=== PATIENT | male | born 1965 | race Caucasian/White ===

== ENCOUNTER 2024-07-11 12:14 | Emergency (ER) | payer OTHER, SELFPAY ==
[2024-07-11] VITALS (22 sets, daily range): BP systolic 123–134; BP diastolic 71–92; PULSE 51–62; RESP 16–20; TEMP 36.4; O2SAT 97–99; BMI 31.6
--- NOTE | 2024-07-11 12:56 | CRLHL7_ITS ---
For Patients: As a result of the Century Cures Act, medical imaging exams and procedure reports are released immediately into your electronic medical record. You may view this report before your referring provider. If you have questions, please contact your health care provider. Indication: Chest pain Technique: AP view of the chest. Comparison: None. Findings: Low lung volumes. Postsurgical changes from median sternotomy. Mildly enlarged cardiomediastinal silhouette with postsurgical changes from coronary artery bypass grafting. Mild interstitial prominence. No focal consolidation, pleural effusions, or visualized pneumothorax. Impression: Mildly enlarged cardiomediastinal silhouette and mild interstitial prominence may relate to low lung volumes or represent mild pulmonary edema. Dictated by Christian Campbell MD @ 07/11/2024 1:31:59 PM (Electronically Signed)
[2024-07-11] MEDS: ASPIRIN 81 MG TAB.CHEW 324 MG PO (13:12)
[2024-07-11 13:37] LABS: Basophils Absolute Auto 0.03 K/uL (0.00-0.30); Basophils Percent Auto 0.6 % (0.0-3.0); Eosinophils Absolute Auto 0.11 K/uL (0.00-0.50); Eosinophils Percent Auto 2.3 % (0.0-7.0); Hematocrit 45.1 % (37.0-53.0); Hemoglobin* 14.9 gm/dL (13.5-17.5); Immature Granulocytes Abs Auto 0.01 K/uL (0.00-0.30); Immature Granulocytes Pct Auto 0.2 %; Lymphocytes Absolute Auto 1.45 K/uL (0.90-2.90); Lymphocytes Percent Auto 30.5 % (20-44); Mean Corpuscular HGB Conc 33 gm/dL (32-36); Mean Corpuscular Hemoglobin 30 pg (26-34); Mean Corpuscular Volume 91 fL (80-100); Neutrophils Absolute Auto 2.77 K/uL (1.7-7.0); Neutrophils Percent Auto 58.4 % (42.0-72.0); Platelet Count* 175 K/uL (140-440); RDW Coefficient of Variation % 12.9 % (11.5-15.5); Red Blood Count 4.97 m/uL (4.30-5.90); White Blood Count* 4.75 K/uL (4.50-11.00)
[2024-07-11 13:59] LABS: Albumin* 4.6 g/dL (3.3-5.0); Chloride* 103 mmol/L (96-114)
[2024-07-11 14:00] LABS: Sodium* 139 mmol/L (135-149)
[2024-07-11 14:02] LABS: Alkaline Phosphatase* 73 U/L (40-150); Anion Gap 8 mEq/L (7-15); Aspartate Amino Transferase* 28 U/L (12-35); Bilirubin Direct* 0.2 mg/dL (0.0-0.5); Bilirubin Total* 0.8 mg/dL (0.1-1.5); Blood Urea Nitrogen* 14 mg/dL (7-30); Carbon Dioxide* 28 mmol/L (20-32); Creatinine* 0.8 mg/dL (0.5-1.5); Est. Creatinine Clearance* 103.92; Estimated Glomerular Filt Rate 103 ml/min; Lipase* 118 U/L (23-300); Total Protein* 7.5 g/dL (6.0-8.3)
[2024-07-11 14:03] LABS: Alanine Aminotransferase* 31 U/L (4-50); Calcium* 9.3 mg/dL (8.4-10.6); Glucose* 91 mg/dL (60-115)
[2024-07-11 14:06] LABS: C Reactive Protein* < 0.5 mg/dL (0.5-1.0); D Dimer Quantitative* 0.74 ug/ml (0.00-0.50)
[2024-07-11 14:07] LABS: Slide Review Reflex No
--- NOTE | 2024-07-11 14:17 | CRLHL7_ITS ---
For Patients: As a result of the Century Cures Act, medical imaging exams and procedure reports are released immediately into your electronic medical record. You may view this report before your referring provider. If you have questions, please contact your health care provider. INDICATION: Chest pain, elevated D-dimer. TECHNIQUE: CT chest PE was acquired with 95 cc Isovue 370 IV contrast. COMPARISON: None. FINDINGS: Heart and vasculature: Contrast opacification of the pulmonary arterial tree is adequate. No sign of pulmonary embolism. Heart size is normal. Coronary artery calcifications. Thoracic aorta and pulmonary artery are normal in caliber. Lungs and pleura: No suspicious nodules or infiltrates. Scattered atelectasis. No pleural effusions, pleural thickening, or pneumothorax. Lymph nodes/mediastinum: No mediastinal, hilar, or axillary adenopathy. Chest wall: No masses. Upper abdomen: No acute or significant findings. Bones: Unremarkable for age. IMPRESSION: No pulmonary embolism. No focal consolidations. Coronary artery calcifications. Please note that all CT scans at this facility use dose modulation, iterative reconstruction, and/or weight-based dosing when appropriate to reduce radiation dose to as low as reasonably achievable. Dictated by Jeremi Mederos MD @ 07/11/2024 3:01:11 PM (Electronically Signed)
--- NOTE | 2024-07-11 14:41 | ED_ITS ---
HPI - General Adult General Date Seen: 07/11/24 Chief complaint: Chest Pain Stated complaint: Chest pain Time Seen by Provider: 07/11/24 12:39 Source: patient Mode of arrival: ambulatory Limitations: no limitations History of Present Illness HPI narrative: Patient is a 59-year-old here for evaluation of chest pain which started a couple of hours prior to presentation. He was at work, not doing anything strenuous, developed sharp stabbing pain in the left side of his chest, kind of wraps around from his left back. Noted increased pain with a deep breath although he did not feel short of breath. Pain also worsens with movement. He has not had fever or cough, denies any lower extremity swelling or pain. Pain has continued since then although it is improved now compared to at its onset. He became concerned as he has a history of quintuple bypass about 6 years ago. He says he saw the industrial hygiene manager about a month ago, there have been no concerns about his cardiac health. He has not had exertional symptoms, has not had any stress testing that he is aware of. He is uncertain of his daily medications but is trying to get a list. He says his industrial hygiene manager recently tried to start him on a new blood pressure medicine that he did not tolerate it due to fatigue. He does not smoke or drink. Here with his . Related Data Home Medications ?Medication ?Instructions ?Recorded ?Confirmed aspirin 81 mg tablet,delayed 81 mg PO DAILY 07/11/24 07/11/24 release (Ecotrin Low Strength) atorvastatin 80 mg tablet 80 mg PO DAILY 07/11/24 07/11/24 ezetimibe 10 mg tablet 10 mg PO DAILY 07/11/24 07/11/24 fluticasone 100 mcg-salmeterol 50 1 ea inhalation BID 07/11/24 07/11/24 mcg/dose blistr powdr for inhalation losartan 25 mg tablet 25 mg PO DAILY 07/11/24 07/11/24 montelukast 10 mg tablet 10 mg PO DAILY 07/11/24 07/11/24 sildenafil 100 mg tablet 100 - 200 mg PO DAILY PRN 07/11/24 07/11/24 Allergies Allergy/AdvReac Type Severity Reaction Status Date / Time No Known Drug Allergies Allergy Verified 07/11/24 14:48 Review of Systems Status of ROS: Reports: 6 or more systems reviewed and unremarkable except as noted in History and below Exam Narrative: Exam Narrative: Vital signs reviewed In general, alert, nontoxic mid age male. Breathing easily. Head: Normocephalic, atraumatic. Eyes: Sclera clear. Pupils equal and reactive. ENT: Mucous membranes moist. Neck: Supple without adenopathy. Heart: Regular rate and rhythm without murmur. Lungs: Clear. No increased work of breathing, crackles or wheezes. Abdomen: Soft, nontender to palpation. Extremities: Well perfused, pulses intact. No significant edema. Neurologic: Alert, conversant. Speech fluent, face symmetric. Moves all extremities equally. Skin: Warm, dry well perfused. Affect: Normal. Const: Vital Signs, click to edit/add: Vital Signs - 24 hr 07/11/24 12:42 07/11/24 12:43 07/11/24 12:44 Temperature 97.6 F Pulse Rate 58 L 58 L Pulse Rate [Pulse Oximeter] 54 L Respiratory Rate 20 Blood Pressure 134/73 Blood Pressure [Le ft Upper Arm] 134/73 Pulse Oximetry 98 99 98 Oxygen Delivery Me thod Room Air 07/11/24 12:45 07/11/24 12:56 07/11/24 13:00 Temperature Pulse Rate 59 L 58 L Pulse Rate [Pulse Oximeter] Respiratory Rate Blood Pressure Blood Pressure [Le ft Upper Arm] Pulse Oximetry 99 97 99 Oxygen Delivery Me thod 07/11/24 13:01 07/11/24 13:01 07/11/24 13:01 Temperature Pulse Rate 57 L 57 L 57 L Pulse Rate [Pulse Oximeter] Respiratory Rate 16 Blood Pressure 130/92 H 130/92 H 130/92 H Blood Pressure [Le ft Upper Arm] Pulse Oximetry 97 97 97 Oxygen Delivery Me thod 07/11/24 13:01 07/11/24 13:15 07/11/24 13:30 Temperature Pulse Rate 57 L 62 53 L Pulse Rate [Pulse Oximeter] Respiratory Rate Blood Pressure 130/92 H Blood Pressure [Le ft Upper Arm] Pulse Oximetry 97 98 99 Oxygen Delivery Me thod 07/11/24 13:31 07/11/24 13:45 07/11/24 14:00 Temperature Pulse Rate 55 L 54 L 59 L Pulse Rate [Pulse Oximeter] Respiratory Rate Blood Pressure 133/84 Blood Pressure [Le ft Upper Arm] Pulse Oximetry 98 98 98 Oxygen Delivery Me thod 07/11/24 14:01 07/11/24 14:15 07/11/24 14:30 Temperature Pulse Rate 53 L 51 L 55 L Pulse Rate [Pulse Oximeter] Respiratory Rate Blood Pressure 127/73 Blood Pressure [Le ft Upper Arm] Pulse Oximetry 98 98 98 Oxygen Delivery Me thod 07/11/24 14:31 07/11/24 14:31 07/11/24 14:45 Temperature Pulse Rate 54 L 54 L 51 L Pulse Rate [Pulse Oximeter] Respiratory Rate Blood Pressure 130/71 130/71 Blood Pressure [Le ft Upper Arm] Pulse Oximetry 99 99 98 Oxygen Delivery Me thod 07/11/24 15:00 07/11/24 15:02 07/11/24 15:02 Temperature Pulse Rate 51 L 51 L 51 L Pulse Rate [Pulse Oximeter] Respiratory Rate Blood Pressure 125/72 125/72 Blood Pressure [Le ft Upper Arm] Pulse Oximetry 98 98 98 Oxygen Delivery Me thod 07/11/24 15:15 07/11/24 15:30 07/11/24 15:32 Temperature Pulse Rate 55 L 58 L 54 L Pulse Rate [Pulse Oximeter] Respiratory Rate Blood Pressure 123/76 Blood Pressure [Le ft Upper Arm] Pulse Oximetry 97 97 98 Oxygen Delivery Me thod Documenting provider has reviewed patient's vital signs: yes Course Course ED Course: EKG done on arrival by my review showed no evidence of ST-elevation KS. Sinus bradycardia, ventricular rate of 57. Q-wave noted in lead 3, otherwise no acute ST segment changes, normal T-waves. Baseline artifact effects V3. He did have an IV placed, was given an aspirin. His initial troponin is 0. Other labs show a white blood cell count of 4.8, hemoglobin of 15, a normal metabolic panel, normal LFTs, negative CRP, normal lipase. His D-dimer is mildly elevated for age at 0.74, and given sudden onset of pain which was pleuritic I did recommend CT scan to look for pulmonary embolism. Other diagnostic considerations would include acute coronary syndrome, angina, pneumonia, pneumothorax, biliary colic, among others. He did have a chest x-ray which by my review did not show evidence of infiltrate, pneumothorax, pleural effusion. He has mild cardiomegaly. Radiology read linked below, reviewed. Chest CT showed no PE or consolidations. Coronary artery calcifications were noted. Repeat troponin at 2:00 a.m. was 0. He feels well at this time. Symptoms are somewhat atypical for cardiac pain, but certainly with his history he is higher risk. I have discussed all this with him. Reviewed that while I do think labs are reassuring in the sense that they do not show a heart attack today, that this does not rule out coronary artery stenosis. I would recommend that he have a stress test as an outpatient. He can call his industrial hygiene manager or discussed with primary care. Also reviewed that if he has recurrent symptoms, particularly in the setting of other symptoms such as shortness of breath, nausea, lightheadedness, diaphoresis etcetera, he should return to the ER immediately. He is comfortable with that plan. Vital Signs Vital signs: Initial Vital Signs Respiratory Effort Normal, Spontaneous, Non-Labored 07/11/24 12:36 Respiratory Depth Normal 07/11/24 12:36 Vital Signs Pulse Rate 58 L 07/11/24 12:42 Blood Pressure 134/73 07/11/24 12:42 Pulse Oximetry 98 07/11/24 12:42 Temperature 97.6 F 07/11/24 12:44 Pulse Rate 54 L 07/11/24 15:32 Respiratory Rate 16 07/11/24 13:01 Blood Pressure 123/76 07/11/24 15:32 Pulse Oximetry 98 07/11/24 15:32 Oxygen Delivery Method Room Air 07/11/24 12:44 Medications Administered Medications: Discontinued Medications Generic Name Dose Route Start Last Admin Trade Name Freq PRN Reason Stop Dose Admin Aspirin 324 mg 07/11/24 12:55 07/11/24 13:12 Aspirin 81 Mg Tab.Chew PO 07/11/24 12:56 324 mg ONCE ONE Administration Medical Decision Making Lab Data Labs: Lab Results 07/11/24 07/11/24 Range/Units 13:25 15:30 WBC 4.75 (4.50-11.00) K/uL RBC 4.97 (4.30-5.90) m/uL Hgb 14.9 (13.5-17.5) gm/dL Hct 45.1 (37.0-53.0) % MCV 91 (80-100) fL MCH 30 (26-34) pg MCHC 33 (32-36) gm/dL RDW Coeff of Car 12.9 (11.5-15.5) % Plt Count 175 (140-440) K/uL Neut % (Auto) 58.4 (42.0-72.0) % Lymph % (Auto) 30.5 (20-44) % [place] % (Auto) 8.0 (0.0-11.0) % Eos % (Auto) 2.3 (0.0-7.0) % Baso % (Auto) 0.6 (0.0-3.0) % Neut # (Auto) 2.77 (1.7-7.0) K/uL Lymph # (Auto) 1.45 (0.90-2.90) K/uL [place] # (Auto) 0.40 (0.00-0.90) K/UL Eos # (Auto) 0.11 (0.00-0.50) K/uL Baso # (Auto) 0.03 (0.00-0.30) K/uL Abs Immat Gran (auto) 0.01 (0.00-0.30) K/uL Imm/Tot Granulo (auto) 0.2 % D-Dimer Quant (PE/DVT) 0.74 H (0.00-0.50) ug/ml Sodium 139 (135-149) mmol/L Potassium 4.0 (3.6-5.1) mmol/L Chloride 103 (96-114) mmol/L Carbon Dioxide 28 (20-32) mmol/L Anion Gap 8 (7-15) mEq/L BUN 14 (7-30) mg/dL Creatinine 0.8 (0.5-1.5) mg/dL Estimated Creat Clear 103.92 Estimated GFR 103 ml/min Glucose 91 (60-115) mg/dL Calcium 9.3 (8.4-10.6) mg/dL Total Bilirubin 0.8 (0.1-1.5) mg/dL Direct Bilirubin 0.2 (0.0-0.5) mg/dL AST 28 (12-35) U/L ALT 31 (4-50) U/L Alkaline Phosphatase 73 (40-150) U/L C-Reactive Protein < 0.5 L (0.5-1.0) mg/dL Total Protein 7.5 (6.0-8.3) g/dL Albumin 4.6 (3.3-5.0) g/dL Lipase 118 (23-300) U/L POC Troponin I 0.00 L 0.00 L (0.01-0.04) ng/ml Imaging Data Chest x-ray: Attestation: I have reviewed the pertinent imaging results. Radiologist's impression: Patient: MAGDALENA ROMAN Facility: [facility] . Site : 1965 Study: XRay-Chest 1V-07/11/2024 1:22:26 PM Ordering Physician: Wiliam Solis Final Report: Indication: Chest pain Technique: AP view of the chest. Comparison: None. Findings: Low lung volumes. Postsurgical changes from median sternotomy. Mildly enlarged cardiomediastinal silhouette with postsurgical changes from coronary artery bypass grafting. Mild interstitial prominence. No focal consolidation, pleural effusions, or visualized pneumothorax. Impression: Mildly enlarged cardiomediastinal silhouette and mild interstitial prominence may relate to low lung volumes or represent mild pulmonary edema. CT scan - chest: Attestation: I have reviewed the pertinent imaging results. Radiologist's impression: [place] [address] Diagnostic Imaging Report Patient: Magdalena Roman MR#: [id number] : 1965 Acct:[id number] Loc: ED Service Date: 07/11/[address]: Ordering Physician: Irma Swain M.D. Date of Service: 07/11/24 Procedure(s): CT angio chest PE protocol Accession Number(s): [id number] cc: Irma Swain M.D.; Pradeep Luciano M.D.~ For Patients: As a result of the Century Cures Act, medical imaging exams and procedure reports are released immediately into your electronic medical record. You may view this report before your referring provider. If you have questions, please contact your health care provider. INDICATION: Chest pain, elevated D-dimer. TECHNIQUE: CT chest PE was acquired with 95 cc Isovue 370 IV contrast. COMPARISON: None. FINDINGS: Heart and vasculature: Contrast opacification of the pulmonary arterial tree is adequate. No sign of pulmonary embolism. Heart size is normal. Coronary artery calcifications. Thoracic aorta and pulmonary artery are normal in caliber. Lungs and pleura: No suspicious nodules or infiltrates. Scattered atelectasis. No pleural effusions, pleural thickening, or pneumothorax. Lymph nodes/mediastinum: No mediastinal, hilar, or axillary adenopathy. Chest wall: No masses. Upper abdomen: No acute or significant findings. Bones: Unremarkable for age. IMPRESSION: No pulmonary embolism. No focal consolidations. Coronary artery calcifications. Please note that all CT scans at this facility use dose modulation, iterative reconstruction, and/or weight-based dosing when appropriate to reduce radiation dose to as low as reasonably achievable. Dictated by Jeremi Mederos MD @ 07/11/2024 3:01:11 PM Discharge Plan Discharge Clinical Impression: Chest pain Instructions: Chest Pain (DC) Additional Instructions: Continue your current medications. Please call your industrial hygiene manager's office or touch base with your primary care doctor in the next couple of days. I would recommend that you have a stress test as an outpatient. In the meantime, I would recommend no strenuous activity. Return to the ER at any time for recurrent pain, other new symptoms such as shortness of breath, nausea, diaphoresis, lightheadedness etcetera. Prescriptions: No Action atorvastatin 80 mg tablet 80 mg PO DAILY sildenafil 100 mg tablet 100 - 200 mg PO DAILY PRN losartan 25 mg tablet 25 mg PO DAILY montelukast 10 mg tablet 10 mg PO DAILY fluticasone propion-salmeterol 100-50 mcg/dose blister with device 1 ea INHALATION BID ezetimibe 10 mg tablet 10 mg PO DAILY aspirin [Ecotrin Low Strength] 81 mg tablet,delayed release (DR/EC) 81 mg PO DAILY Follow Up/Referrals: Pradeep Luciano MD [Primary Care Provider] - Stand Alone Forms: [facility] Info Instructions
== END 2024-07-11 16:19 | disposition home or self-care (01) ==
PROVIDERS: Emergency Provider Emergency Medicine; PCP Family Medicine
DX: R07.9 Chest pain, unspecified (principal)
CPT/HCPCS: 36415; 71045; 71275; 80048; 80076; 83690; 84484; 85025; 85379; 86140; 93005; 94761; 99284; 99285; A9270; Q9967